=== PATIENT | female | born 1965 | race Caucasian/White ===

== ENCOUNTER → 2017-11-28 09:43 | Outpatient (CLI) | payer BC, SELFPAY ==
--- NOTE | 2017-11-28 09:55 | RAD_ITS ---
STUDY: X-RAY - PELVIS REASON FOR EXAM: Female, 51 years old. Inflammatory polyarthropathy. TECHNIQUE: One view of the pelvis was obtained. COMPARISON: None. FINDINGS: There is a non-specific bowel gas pattern. Normal visualized soft tissue structures. Normal bilateral iliac wings, sacroiliac joints and visualized sacrum. Normal visualized bilateral superior and inferior pubic rami. Normal pubic symphysis. Normal ischial tuberosities. Normal visualized right femoral head. Normal right acetabulum. Normal right hip joint. Normal visualized left femoral head. Normal left acetabulum. Normal left hip joint. RAD/Pelvis 1 or 2 Views IMPRESSION: Normal x-ray examination of the pelvis. Electronically Signed: Mendez Hays MD at 17:00 EDT , Service support ,
[2017-11-28 11:55] LABS: Color, Urine Yellow (Yellow); Glucose, Dipstick Normal (Normal); Ketone-Dipstick Negative (Negative); Leukocyte Esterase-Dipstick 25 /ul (Negative); Nitrite-Dipstick Negative (Negative); Occult Blood-Urine Negative /ul (Negative); Protein-Dipstick Negative (Negative); Urine Bilirubin Dipstick Negative (Negative); Urine Clarity Clear (Clear); Urine Urobilinogen 4 mg/dl (Normal); Urine pH 6.5 (5.0 - 8.0)
[2017-11-28 12:06] LABS: Protein, Urine (Random) 11.2 mg/dL (<11.9); Protein:Creat Ratio 116 mg/g CRE (0-200)
[2017-11-28 12:09] LABS: Absolute Lymphocyte Count 1.97 X10^3/ul (0.83-4.51); Basophil# 0.01 X10^3/uL; Basophil% 0.2 % (0-1); Eosinophil# 0.04 X10^3/uL; Eosinophils% 0.9 % (0-5); Hematocrit 45.2 % (37-47); Lymphocyte # 1.97 X10^3/ul (4.0); Lymphocyte % 45.1 % (19-41); Mean Corp Hgb Conc 33.2 g/gl (32-36); Mean Corpuscular Hgb 28.2 pg (27.0-32.0); Mean Corpuscular Volume 85.1 fL (81-99); Mean Platelet Vol. 11.1 fl (6.2-12.0); Monocyte# 0.31 X10^3/uL; Monocyte% 7.1 % (0-10); Neutrophil # 2.03 X10^3/uL (2.7-7.7); Neutrophil % 46.5 % (47-70); Platelet Count 249 K/mm3 (150-450); RBC Distribution Width CV 14.5 % (11.6-14.6); RBC Distribution Width SD 45.2 fl (35.1-43.9); Red Blood Count 5.31 M/mm3 (4.2-5.4); White Blood Count 4.4 K/mm3 (4.4-11.0)
[2017-11-28 12:16] LABS: ALB/GLOB Ratio 1.1 RATIO (0.9-2.4); AST(SGOT) 19 U/L (15-37); Alanine Aminotransfer ALT/SGPT 33 U/L (13-56); Albumin, Serum 3.7 g/dL (3.2-5.0); Alkaline Phosphatase 105 U/L (45-117); Anion Gap 6 (5-15); BUN 14 mg/dL (7-18); BUN/Creat Ratio 17.7 RATIO (10-20); Calcium,Total 10.7 mg/dL (8.5-10.1); Chloride 110 mmol/L (98-107); Creatinine, Serum 0.79 mg/dL (0.55-1.02); EST Glomerular Filtration Rate 80 mL/min (>60); Est Glom Filt Rate - Afr Amer 97 mL/min (>60); Globulin 3.4 g/dL (2.2-4.2); Glucose 91 mg/dL (74-106); Potassium 4.4 mmol/L (3.5-5.1); Protein, Total 7.1 g/dL (6.4-8.2); Rheumatoid Factor < 10.0 IU/mL (<15); Sodium Level 142 mmol/L (136-145)
[2017-11-28 12:17] LABS: POSITIVE COUNT NO; POSITIVE DIFFERENTIAL NO; POSITIVE MORPHOLOGY NO
[2017-11-29 14:08] LABS: Anti-Centromere B Ab <0.2 AI (0.0-0.9); Anti-Jo <0.2 AI (0.0-0.9); Anti-Scleroderma-70 AB <0.2 AI (0.0-0.9); RNP Ab <0.2 AI (0.0-0.9); SJOGREN'S Anti-SS-A test < 0.2 AI (0.0-0.9); SJOGREN'S Anti-SS-B test < 0.2 AI (0.0-0.9); Smith Ab <0.2 AI (0.0-0.9)
[2017-11-29 14:34] LABS: ANTINUCLEAR ANTIBODIES DIRECT Negative (Negative); Anti-dsDNA Ab 1 IU/mL (0-9)
[2017-12-05 16:07] LABS: Complement C3 141 mg/dL (82-167)
[2017-12-07 10:41] LABS: CCP IgG Antibodies < 1 units (0-19); HEPATITIS B SURFACE AG Negative (Negative); HLA B27 Negative (.); Hep B Surface Antibodies Non Reactive (.); Hep C Antibodies <0.1 s/co ratio (0.0-0.9)
== END ==
PROVIDERS: Family Provider Family Medicine; PCP Family Medicine; Visit Provider Internal Medicine Rheumatology
DX: M06.4 Inflammatory polyarthropathy (principal); M79.7 Fibromyalgia; R76.8 Other specified abnormal immunological findings in serum; F41.9 Anxiety disorder, unspecified; F32.89 Other specified depressive episodes; G47.33 Obstructive sleep apnea (adult) (pediatric)
CPT/HCPCS: 36415; 72170; 80053; 81002; 81374; 82570; 84156; 85025; 86038; 86160; 86200; 86225; 86235; 86431; 86706; 86803; 87340

== ENCOUNTER → 2018-02-02 16:01 | Outpatient (CLI) | payer BC, SELFPAY ==
[2018-02-02 17:47] LABS: Absolute Lymphocyte Count 2.02 X10^3/ul (0.83-4.51); Absolute Neutrophil Count 2.6 X10^3/uL (2.0-7.7); Eosinophil# 0.05 X10^3/uL; Hematocrit 44.1 % (37-47); Lymphocyte # 2.02 X10^3/ul (4.0); Lymphocyte % 39.7 % (19-41); Mean Corpuscular Hgb 29.3 pg (27.0-32.0); Mean Corpuscular Volume 86.1 fL (81-99); Mean Platelet Vol. 10.8 fl (6.2-12.0); Monocyte# 0.45 X10^3/uL; Monocyte% 8.8 % (0-10); Neutrophil # 2.55 X10^3/uL (2.7-7.7); Neutrophil % 50.1 % (47-70); Platelet Count 308 K/mm3 (150-450); RBC Distribution Width CV 16.3 % (11.6-14.6); RBC Distribution Width SD 49.3 fl (35.1-43.9); Red Blood Count 5.12 M/mm3 (4.2-5.4); White Blood Count 5.1 K/mm3 (4.4-11.0)
[2018-02-02 18:02] LABS: ALB/GLOB Ratio 1.4 RATIO (0.9-2.4); AST(SGOT) 22 U/L (15-37); Alanine Aminotransfer ALT/SGPT 61 U/L (13-56); Alkaline Phosphatase 140 U/L (45-117); Anion Gap 8 (5-15); BUN 13 mg/dL (7-18); BUN/Creat Ratio 14.1 RATIO (10-20); Calcium,Total 12.1 mg/dL (8.5-10.1); Chloride 106 mmol/L (98-107); Creatinine, Serum 0.92 mg/dL (0.55-1.02); EST Glomerular Filtration Rate 67 mL/min (>60); Est Glom Filt Rate - Afr Amer 82 mL/min (>60); Globulin 2.9 g/dL (2.2-4.2); Glucose 90 mg/dL (74-106); Protein, Total 6.9 g/dL (6.4-8.2); Sodium Level 142 mmol/L (136-145)
[2018-02-02 18:05] LABS: POSITIVE COUNT NO; POSITIVE DIFFERENTIAL NO; POSITIVE MORPHOLOGY NO
== END ==
PROVIDERS: Family Provider Family Medicine; PCP Family Medicine; Visit Provider Internal Medicine Rheumatology
DX: M06.4 Inflammatory polyarthropathy (principal); M79.7 Fibromyalgia; F41.9 Anxiety disorder, unspecified; F32.89 Other specified depressive episodes; G47.33 Obstructive sleep apnea (adult) (pediatric); R76.8 Other specified abnormal immunological findings in serum
CPT/HCPCS: 36415; 80053; 85025

== ENCOUNTER 2019-02-25 05:14 | Inpatient (IN) | payer OTHER, SELFPAY ==
--- NOTE | 2019-01-24 06:22 | HP_ITS ---
ADDENDUM by Michael Reich MD on 01/28/19 at 1201 Addendum entered and electronically signed by Michael Reich MD 01/28/19 12:01: I have personally reviewed her CT imaging from [facility]. She had imaging performed October 01, 2018 and repeat imaging December 19, 2018. There is certainly diverticulitis identified however it appears to be in approximately the mid descending colon. There is extensive diverticular disease of the sigmoid colon but this does not appear to be the focal area of inflammation. There is evidence of focal perforation in the descending colon. This certainly will require mobilization of the splenic flexure. Certainly increases the technical difficulty and risk of the operation. The patient has been instructed that this may require hand assist or even conversion to an open technique. I am anticipating a tap block. I am anticipating a midline incision. She has had the opportunity to ask and have questions answered she would like to proceed as noted. Michael Reich M.D., F.A.C.S. Intake Allergies No Known Allergies Allergy (Unverified 01/24/19 08:51) Medications ciprofloxacin 500 mg tablet 500 mg PO BID 7 Days #14 tab 01/24/19 [Rx Confirmed 01/24/19] fluoxetine 40 mg capsule 40 mg PO DAILY 01/24/19 [History Confirmed 01/24/19] losartan 25 mg tablet 25 mg PO DAILY 01/24/19 [History Confirmed 01/24/19] metoprolol succinate ER 25 mg tablet,extended release 24 hr 25 mg PO DAILY 01/24/19 [History Confirmed 01/24/19] metronidazole 500 mg tablet 500 mg PO TID 7 Days #21 tab 01/24/19 [Rx Confirmed 01/24/19] Assessment & Plan Problems 1. Sigmoid diverticulitis K57.32 Plan - Michael Reich MD Clinically is very suspicious that the patient has had another bout of recurrent sigmoid diverticulitis. Possibly she is non-resolving. In great detail I have discussed surgical treatment options. We have discussed potential for a lap scopic sigmoid colectomy possible hand-assisted possible open approach possible diverting colostomy or ileostomy. I went into great detail regarding technique, benefit, risks, alternatives. Absolutely no guarantees of success were offered. The patient is also aware that her body habitus clearly plates are at increased operative challenge and operative risk. This made her very tearful. I offered her consideration for tertiary referral. I offered her consideration for an attempt at a sigmoid colectomy locally here at [place]. Prior to proceeding with that offer I would want to personally review her CT scans. The patient also of course has the opportunity not to proceed surgical intervention at all. She has had an opportunity to ask and have questions answered. She will help provide me with the CT disc and then we will recontact the patient with further more definitive recommendations. I appreciate the opportunity of assisting with her surgical care CC: KELLY Mart MD, FACS Medications New: metronidazole 500 mg PO TID 7 days 21 tabs 0RF ciprofloxacin 500 mg PO BID 7 days 14 tabs 0RF 01/28/19 1201 <Electronically signed by Michael todd MD> Date _ Michael Reich MD cc: KELLY Singh ~* Signed Intake Vital Signs 01/24/19 Height 4 ft 10 in 01/24/19 Weight: 210 lb 01/24/19 Body Mass Index (BMI) 43.9 01/24/19 Blood Pressure 180/103 H 01/24/19 Blood Pressure Location Rt brachial 01/24/19 Respiratory Rate 18 Intake Visit Reasons: Diverticulitis Customer Acquisition Manager Required: No Is patient in pain?: No Allergies No Known Allergies Allergy (Unverified 01/24/19 08:51) Medications ciprofloxacin 500 mg tablet 500 mg PO BID 7 Days #14 tab 01/24/19 [Rx Confirmed 01/24/19] fluoxetine 40 mg capsule 40 mg PO DAILY 01/24/19 [History Confirmed 01/24/19] losartan 25 mg tablet 25 mg PO DAILY 01/24/19 [History Confirmed 01/24/19] metoprolol succinate ER 25 mg tablet,extended release 24 hr 25 mg PO DAILY 01/24/19 [History Confirmed 01/24/19] metronidazole 500 mg tablet 500 mg PO TID 7 Days #21 tab 01/24/19 [Rx Confirmed 01/24/19] PFSH Medical History Depression (Acute) Diverticulitis (Acute) HTN (hypertension) (Chronic) Surgical History (Updated 01/24/19 @ 08:50 by Julee Mehta) S/P section (Acute) S/P hysterectomy (Acute) S/P laparoscopic cholecystectomy (Acute) Social History (Updated 01/24/19 @ 18:22 by Michael Reich MD) Smoking Status: Never smoker alcohol intake: never HPI HPI HPI: NELSON WILDER, is a 53 F who presents to the office today for HPI HPI Surgical H&P: Yes HPI: NELSON WILDER, is a 53 F who presents to the office today for general surgical consultation regarding chronic recurrent diverticulitis non-resolving. The patient's referring provider is Michelle Singh PA-C. A written copy of my surgical consult will be returned to her. The patient states that within the past 3 months she has been hospitalized at [facility] twice. She was on IV antibiotics for 3 days and discharged on Augmentin therapy. Yesterday she developed some pain and fever. She has had [address] scans post showing sigmoid diverticulitis. I do not have access to these films right at this moment. The patient has had a colonoscopy with biopsy performed by Dr. Anthony De Santiago. This demonstrated a very focal area of colitis of the sigmoid. October 01, 2018 CT scan performed at [facility] suggested sigmoid colon mucosal thickening pericolonic fat stranding consistent with diverticulitis. Small umbilical hernia. On December 19, 2018 very similar findings are identified. The patient states that she has not been getting any definitive assistance with resolution. She is very frustrated by this. She feels that her obesity is stopping her from getting appropriate treatment. The patient is 4 feet 10 inches. Weighs 210 pounds. BMI is 43.9. She carries all of her weight in her abdomen Exam Const General: cooperative, comfortable, no acute distress, anxious Nutritional Appearance: obese centrally obese Orientation: alert, awake, oriented x3 HENMT Head: normal to inspection Chest Chest palpation & inspection: normal inspection of the chest Resp Effort & Inspection: normal respiratory effort Auscultation: clear to auscultation bilaterally Cardio Rate: regular rate Rhythm: regular rhythm GI Other: Markedly overweight with large abdomen and overhanging pannus, tender to palpation left mid abdomen and left lower quadrant without mass. Bowel sounds are present and nondescript Skin General: no rashes or lesions noted Neuro General: alert Extrem General: no calf tenderness bilaterally Psych Affect: labile affect Assessment & Plan Problems 1. Sigmoid diverticulitis K57.32 Plan Clinically is very suspicious that the patient has had another bout of recurrent sigmoid diverticulitis. Possibly she is non-resolving. In great detail I have discussed surgical treatment options. We have discussed potential for a lap scopic sigmoid colectomy possible hand-assisted possible open approach possible diverting colostomy or ileostomy. I went into great detail regarding technique, benefit, risks, alternatives. Absolutely no guarantees of success were offered. The patient is also aware that her body habitus clearly plates are at increased operative challenge and operative risk. This made her very tearful. I offered her consideration for tertiary referral. I offered her consideration for an attempt at a sigmoid colectomy locally here at [place]. Prior to proceeding with that offer I would want to personally review her CT scans. The patient also of course has the opportunity not to proceed surgical intervention at all. She has had an opportunity to ask and have questions answered. She will help provide me with the CT disc and then we will recontact the patient with further more definitive recommendations. I appreciate the opportunity of assisting with her surgical care CC: KELLY Mart MD, FACS Medications New: metronidazole 500 mg PO TID 7 days 21 tabs 0RF ciprofloxacin 500 mg PO BID 7 days 14 tabs 0RF Coding Level of Care Code 77373 Diagnoses Sigmoid diverticulitis K57.32 Time Spent (min) 60 01/24/19 3982 <Electronically signed by Michael todd MD> Date _ Michael Reich MD I have re-examined the patient. There are no clinical changes since date of exam.
[2019-01-24 08:51] VITALS: BMI 43.9
[2019-02-18 09:20] VITALS: BMI 43.9
[2019-02-18 10:10] VITALS: PULSE 73; RESP 16; TEMP 36.9; O2SAT 98; BMI 42.8
--- NOTE | 2019-02-18 10:37 | SDCEKG_ITS ---
Test Reason : Blood Pressure : / mmHG Vent. Rate : 070 BPM Atrial Rate : 070 BPM P-R Int : 160 ms QRS Dur : 074 ms QT Int : 384 ms P-R-T Axes : 017 -14 017 degrees QTc Int : 414 ms Normal sinus rhythm Normal ECG Confirmed by CELSO KNIGHT ([id number]), newspaper editor managing WILLIAM DELUNA ([id number]) on 02/21/2019 2:14:07 PM Referred By: Michael Reich Confirmed By:CELSO KNIGHT
[2019-02-18 12:27] LABS: Absolute Lymphocyte Count 2.11 X10^3/uL (0.83-4.51); Basophil# 0.01 X10^3/uL; Basophil% 0.2 % (0-1); Hematocrit 48.5 % (37-47); Hemoglobin 15.6 g/dL (12.0-15.0); Lymphocyte # 2.11 X10^3/ul (4.0); Lymphocyte % 39.1 % (19-41); Mean Corp Hgb Conc 32.2 g/dL (32-36); Mean Corpuscular Volume 90.1 fL (81-99); Mean Platelet Vol. 10.9 fl (6.2-12.0); Monocyte% 5.6 % (0-10); NRBC Flagged by Analyzer 0 % (0-5); Neutrophil # 2.96 X10^3/uL (2.7-7.7); Neutrophil % 54.7 % (47-70); Platelet Count 308 K/mm3 (150-450); RBC Distribution Width CV 15.4 % (11.6-14.6); RBC Distribution Width SD 50.4 fl (35.1-43.9); Red Blood Count 5.38 M/mm3 (4.2-5.4); White Blood Count 5.4 K/mm3 (4.4-11.0)
[2019-02-18 12:51] LABS: Anion Gap 6 (5-15); BUN 15 mg/dL (7-18); BUN/Creat Ratio 19.4 RATIO (10-20); Calcium,Total 10.5 mg/dL (8.5-10.1); Chloride 109 mmol/L (98-107); Creatinine, Serum 0.78 mg/dL (0.55-1.02); EST Glomerular Filtration Rate 82 mL/min (>60); Est Glom Filt Rate - Afr Amer 99 mL/min (>60); Estimated Creatinine Clearance 123.89 ml/min; Glucose 90 mg/dL (74-106); Potassium 4.4 mmol/L (3.5-5.1); Sodium Level 140 mmol/L (136-145)
[2019-02-25] VITALS (15 sets, daily range): BP systolic 95–155; BP diastolic 48–101; PULSE 53–86; RESP 16–18; TEMP 36.3–36.8; O2SAT 94–100; BMI 42.8
[2019-02-25 06:31] LABS: Bedside Glucose 93 mg/dL (70-110)
[2019-02-25] MEDS: Lactated Ringers 1,000 ML 40 ML IV ×2 (06:40→22:47)
[2019-02-25] MEDS: Acetaminophen 500 MG Tablet 1000 MG PO ×4 (06:41→23:58)
[2019-02-25] MEDS: Gabapentin 600 MG Tablet PO (06:41)
[2019-02-25] MEDS: Magnesium Sulfate 4gm/100mL 4 GM/100 ML IV.SOLN. IV (06:42)
--- NOTE | 2019-02-25 07:01 | DCINST_ITS ---
<Michael Reich - Last Filed: 02/25/19 07:01> Discharge Diet: Light diet - advance as tolerated - if you have questions about your diet instructions, please talk to you doctor. Discharge Activity: May Not Drive - for 1 week or while taking narcotic pain medicine. May shower in (days): 1 Lifting Restrictions: 10 pounds Call your doctor if your incision/area has: Continuous Slow Oozing, Sudden Increased Bleeding, Increased Pain/ Swelling, Increased Redness, Foul Smelling Discharge Call your doctor if you observe: Fever of 101 or Higher Suture Line Care: Avoid Pulling/Pushing, Avoid Pinching/Bending Additional Dressing/Incision Instructions:: Change or remove dressing in 2 days. Leave steri-strips in place for 1 week. Allergies/Adverse Reactions: Allergies No Known Allergies Allergy (Unverified 02/18/19 10:08) Medications to take at Discharge fluoxetine 40 mg capsule 40 mg PO DAILY 01/24/19 losartan 25 mg tablet 25 mg PO DAILY 01/24/19 metoprolol succinate ER 25 mg tablet,extended release 24 hr 25 mg PO DAILY 01/24/19 metronidazole 500 mg tablet 500 mg PO .COMPLEX #6 tab 02/18/19 neomycin 500 mg tablet 500 mg PO .COMPLEX #6 tab 02/18/19 Primary Care Physician: Michelle Singh PA-C [Primary Care Provider] - Test Results: Test results from this visit will be discussed in further detail at your follow- up appointment, if applicable. Please Follow Up With: Michael Reich MD - [phone] When: Call to make an appointment to be seen in about 10 days. <Yamila Landaverde - Last Filed: 02/27/19 10:12> Test Results: Test results from this visit will be discussed in further detail at your follow- up appointment, if applicable.
--- NOTE | 2019-02-25 07:15 | COL_PTH ---
PATIENT: NELSON WILDER LOC: MS3 U#:[id number] AGE/SX: 53/F ROOM: GA317 RE02/25/[address]: Dr. Michael Reich MD : 1965 BED: 1 DIS: 02/27/2019 SPEC #: [id number] RECD: 02/25/19 12:24 STATUS: GISSELL REGabriella #: [id number] SENTHIL: 02/25/19 07:[address]: Michael Reich DEPT: SURGICAL PATHOLOGY RECD BY: America Ortiz ENTERED: 02/25/19 13:41 SP TYPE: COLON OTHR DR: Michelle Singh PA-C Tissues: A - Colon Donuts B - Colon Donuts C - Colon, NOS Procedures: Surgery Specimen Level III Surgery Specimen Level V HEADER OPERATION: Laparoscopic hand assisted left colectomy, ERAS PRE-OP DIAGNOSIS: Sigmoid diverticulitis K57.32 TISSUE SUBMITTED: A. Distal (rectal) bowen BJalil Proximal (sigmoid) Héctor wiseman Entire left colon MICROSCOPIC DIAGNOSIS A. Distal (rectal) donut: Colonic donut, no pathologic diagnosis. B. Proximal (sigmoid) donut: Colonic donut, no pathologic diagnosis. C. Entire left colon, colectomy: Diverticulosis and diverticulitis. SJ:elena 02/27/19 MICROSCOPIC DESCRIPTION Slides are reviewed. GROSS DESCRIPTION A - Received in fixative is one container labeled with the patient's name and designated distal (rectal) donut. The specimen consists of a donut-shaped piece of colonic tissue measuring 2.5 x 2.5 x 1.5 cm. Multiple rebecca are noted. Process Steward sections are submitted in one cassette. / MOMO:elena 02/25/19 B - Received in fixative is one container labeled with the patient's name and designated proximal (sigmoid) donut. The specimen consists of a donut-shaped piece of colonic tissue measuring 2 x 2 x 1.5 cm. Multiple sutures are noted. Process Steward sections are submitted in one cassette. / MOMO:elena 02/25/19 C - Received in fixative is one container labeled with the patient's name and designated entire left colon. The specimen consists of a segment of colon with attached pericolonic adipose tissue measuring 35 cm in length. One resection margin is opened and other resection margin is stapled. The lumen contains a small amount of fecal material. No mucosal lesion is identified. More dictation will follow after overnight fixation. / SJ:elena 02/25/19 Sections reveal multiple diverticula. No obviously ruptured diverticula are noted. Sections of pericolonic adipose tissue do not reveal any obviously enlarged lymph node. Process Steward sections are submitted in six cassettes as follows: 1 - resection margin, one resection margin is inked black, 2-4 - diverticula, 5?& 6 - pericolonic adipose tissue. / :elena 02/26/19 TC:5 CPT: 19595, 05965 x2
[2019-02-25] MEDS: Lidocaine/D5W 2,000 MG/250 ML IV.SOLN 2000 MG (07:30)
[2019-02-25] MEDS: Lidocaine/D5W 2,000 MG/250 ML IV.SOLN 28.9 MG IV (07:45)
[2019-02-25] MEDS: Lubricating Jelly 60 GM Tube 30 GM TOPICAL (09:05)
[2019-02-25] MEDS: Bupivacaine 0.25% 30 ML Vial (11:04)
--- NOTE | 2019-02-25 11:07 | OP.PCM_ITS ---
Problem List (1) Sigmoid diverticulitis Status: Acute (2) Diverticulitis large intestine Status: Acute Qualifiers: Diverticulitis complication: with perforation Report of Operation Date of Procedure: 02/25/19 Pre-Operative Diagnosis: Chronic perforated diverticulitis of the descending colon Post-Operative Diagnosis: Chronic perforated diverticulitis of the descending colon and chronic diverticulitis of the distal sigmoid colon Surgery/Procedure Performed:: Hand-assisted laparoscopic left colectomy with mobilization of the splenic flexure. Bilateral subcostal LEIDY block Description of Surgical Findings:: Timeout and informed consent was obtained. 53-year-old female was taken out from placement table underwent general endotracheal intubation anesthesia. Cefotetan 2 g were given intravenously preoperatively. She was placed in low lithotomy position. She was placed on a beanbag. She is essentially very morbidly obese. The abdomen and perineum were sterilely prepped and draped. A Edmond catheter was inserted. Inspecting her abdomen felt that I could not achieve this completely laparoscopically so I immediately did a sterile prepping draping but Sulema then made a 7 similar supra umbilical vertical incision. Placed a hand assist port. There were adhesions of omentum to the anterior abdominal wall in the infraumbilical position. I placed a 5 De Santiago port in the right lower quadrant additional 5 De Santiago port in the right lower quadrant and additional 5 De Santiago port in the epigastric area and an additional 5 De Santiago port in the left lower quadrant. These were used to help mobilize and free up the adhesions of omentum to the infraumbilical midline. This was done with the Enseal device. There were multiple adhesions of the sigmoid colon to the left pelvic sidewall and I carefully transected those with the Enseal and I was able to mobilize the rectosigmoid from the pelvis. I then incised the white line of Toldt and carried at all the way up to the splenic flexure I was then able to mobilize the splenic flexure carefully taking great care not to injure the spleen. I then transected the gastrocolic omentum all the way over to the level of the gallbladder. This allowed for mobilization of the transverse colon. There was an area of perforation induration in the proximal descending colon. This was the area of concern on CAT scan and correlate with the patient's symptoms. There was another dense area of indurated bowel however at the pelvic brim in the distal sigmoid colon. So I then having mobilize: [place] I could get the transverse colon back down to the rectosigmoid clearly I brought the bowel out transected portion of it with the Enseal device felt that I was able to ac hieve the length required and so I then returned the bowel to the abdomen transected the rectosigmoid with 2 firings of the 60 mm Hendron device. I then transected the mesentery absolutely flush with the bowel and took out the entire left colon. The bowel was eviscerated through the supraumbilical incision and I have obtained additional hemostasis were needed with hemo-lock clips and 4-0 silk sutures. I then transected the bowel proximally with a Cody clamp. I placed a whip suture of 2-0 Prolene. I put a 33 circular anastomotic stapler anvil and secured that with the pursestring. I dabbed the ends with the Betadine. I drop that back within the abdomen. The rectosigmoid was irrigated with dilute Betadine solution. Sizers were placed. In the circular anastomotic stapler was inserted up to the staple line. The trocar was exited I was then able to made it to the antral and watches the 2 were approximated. The device was fired. The device was then removed the donuts were inspected. Sigmoid donut quite nice and intact with the rectal tone and also intact. Rigid sigmoidoscope was then inserted past the anus air was insufflated with water in the pelvis and there was absolutely no air leak. The bowel appeared to be nicely intact there was absolutely no tension. Because I had a long mesentery I was unable to approximate that back to the transverse colon using extra-large Hem-o-tiffanie clips in the means of closing the mesenteric trap. Small bowel was made sure to be out from underneath the transverse colon which now made up the descending portion of the bowel. The bowel was inspected all noted to be quite viable. It is of note that 1 of the right lower quadrant flowmeter trochars had to be upsized to a telemeter to allow for the Hendron to be used. Inspected the pelvis all free fluid was aspirated free. At telemeter trocar site was closed with a grainy needle in [id number] suture of 0 Vicryl. The remaining trochars removed under visualization and the abdomen was allowed to deflate the CO2. Prior to this a bilateral tap block was performed under laparoscopic visualization. 20 cc of Exparel was mixed with 30 cc of 0.5% Marcaine and diluted 200 cc with saline. Under lap scopic visualization bilateral tap block in the transabdominal was pre-peritoneal level. This was performed with a 25- gauge needle injecting at 2 cm intervals bilaterally. At then achieved the abdomen was allowed to deflate the CO2. The fascia at the supraumbilical midline was closed with a running #1 PDS. That fascia was also treated with a local anesthetic. Several interrupted 3-0 Vicryl was used to close the subtenons fat as the patient is significantly overweight in this area. Skin edges approximated with interrupted or running septic or 4-0 Monocryl. Steri-Strips Telfa and OpSite dressings applied. Sponge and instrument and needle counts were reported to surgically correct. Blood loss was 150 cc. She tolerated procedure well no apparent complication s he was taken to the recovery area in satisfactory condition. Specimen left colon. Drains none. Blood loss 150 cc. Michael Reich M.D., F.A.C.S. Type of Anesthesia:: General Anesthesiologist: Cheo Lau
[2019-02-25] MEDS: BUPIVACAINE LIPOSOME/PF 20 ML VIAL OPERA.SITE (11:08)
[2019-02-25] MEDS: Ketorolac 15 MG/ML Vial IV ×3 (14:00→23:58)
--- NOTE | 2019-02-25 18:02 | PCM.PN.BLA ---
Progress Note Pt comfortable and making good progress VS stable Encouraged pt to mobilize R.Cebul
[2019-02-25] MEDS: Docusate Sodium 100 MG Capsule PO (22:09)
[2019-02-26 03:03] VITALS: BP 103/61; PULSE 71; RESP 16; TEMP 36.6; O2SAT 99
[2019-02-26] MEDS: Ketorolac 15 MG/ML Vial IV ×3 (05:21→23:01)
[2019-02-26 05:42] LABS: Hematocrit 36.8 % (37-47); Mean Corp Hgb Conc 32.6 g/dL (32-36); Mean Corpuscular Hgb 29.2 pg (27.0-32.0); Mean Corpuscular Volume 89.5 fL (81-99); Mean Platelet Vol. 10.1 fl (6.2-12.0); Platelet Count 254 K/mm3 (150-450); RBC Distribution Width CV 15.6 % (11.6-14.6); RBC Distribution Width SD 50.7 fl (35.1-43.9); Red Blood Count 4.11 M/mm3 (4.2-5.4); White Blood Count 7.2 K/mm3 (4.4-11.0)
--- NOTE | 2019-02-26 05:47 | PCM.PN.SRG ---
Patient Problems: Active and Suspected Problems (Last Reviewed 02/18/19 @ 09:10 by Chely Harrison) Diverticulitis large intestine (Acute) Subjective: No complaints, not much pain - Physical Exam General: Alert, Oriented x3 Lungs: Clear to auscultation Abdomen: Soft, Non Tender, Hypoactive Bowel Sounds, Distended Vital Signs Temp Pulse Resp BP Pulse Ox 97.9 F 71 16 103/61 99 02/26/19 03:03 02/26/19 03:03 02/26/19 03:03 02/26/19 03:03 02/26/19 03:03 Oxygen Flow Rate (L/min) 1 Oxygen Delivery Method Nasal Cannula Weight: 212 lb 4.882 oz Body Mass Index (BMI) 42.8 Intake and Output for Last 24 Hours 02/24/19 02/25/19 02/26/19 23:59 23:59 23:59 Intake Total 2708 / 3510 802 / 802 Output Total 450 / 525 75 / 75 Balance 2258 / 2985 727 / 727 Laboratory Tests Past 24 Hrs 02/26/19 02/26/19 05:30 05:30 WBC 7.2 RBC 4.11 L Hgb 12.0 Hct 36.8 L MCV 89.5 MCH 29.2 MCHC 32.6 RDW Std Deviation 50.7 H RDW Coeff of Shellie 15.6 H Plt Count 254 MPV 10.1 Sodium Pending Potassium Pending Chloride Pending Carbon Dioxide Pending Anion Gap Pending BUN Pending Creatinine Pending Est GFR (MDRD) Af Amer Pending Est GFR (MDRD) Non-Af Pending BUN/Creatinine Ratio Pending Glucose Pending Calcium Pending POC Glucose 02/25/19 06:01 POC Glucose 93 Medical Necessity - Tobacco Use Smoking Status: Never smoker Tobacco Use: Non-smoker Assessment/Plan All Active Problems (Last Reviewed 02/18/19 @ 09:10 by Chely Harrison) Diverticulitis large intestine (Acute) Sigmoid diverticulitis (Acute) Excellent progress Will ivette mcdowell and pt encouraged to mobilize
[2019-02-26 06:08] LABS: Anion Gap 6 (5-15); BUN 13 mg/dL (7-18); BUN/Creat Ratio 10.2 RATIO (10-20); Calcium,Total 8.9 mg/dL (8.5-10.1); Chloride 108 mmol/L (98-107); Creatinine, Serum 1.28 mg/dL (0.55-1.02); EST Glomerular Filtration Rate 46 mL/min (>60); Est Glom Filt Rate - Afr Amer 56 mL/min (>60); Glucose 109 mg/dL (74-106); Potassium 4.1 mmol/L (3.5-5.1); Sodium Level 137 mmol/L (136-145)
[2019-02-26] MEDS: Lactated Ringers 1,000 ML 40 ML IV ×2 (06:19→23:02)
[2019-02-26] MEDS: HYDROcodone Bitartrate/Apap 5/325 Tablet PO (06:56)
[2019-02-26 07:30] VITALS: O2SAT 95
[2019-02-26 09:00] VITALS: BP 95/56; PULSE 62; RESP 16; TEMP 36.7; O2SAT 95
[2019-02-26] MEDS: Docusate Sodium 100 MG Capsule PO (09:53)
[2019-02-26] MEDS: FLUoxetine 20 MG Capsule 40 MG PO (09:53)
[2019-02-26 09:54] VITALS: PULSE 65
[2019-02-26] MEDS: Metoprolol(XL)Succ 25 MG Tablet PO (09:54)
[2019-02-26] MEDS: Enoxaparin 40 MG/0.4 ML Syringe SC (09:54)
[2019-02-26] MEDS: Losartan Potassium 25 MG Tablet PO (09:54)
--- NOTE | 2019-02-26 12:59 | CASEMGMT ---
RN CM Assessment Presentation: Diverticulitis, Colectomy Intro role of CM and purpose of RN CM assessment to patient in room. Demographics, PCP and Pharmacy verified. Pt states she lives independently, works and does not anticipate any care needs. PCP: Michelle Singh PA-C Specialists: Dr. Michael Reich Preferred Pharmacy: [facility] Insurance: [facility] Prescription Benefit: yes LNOK: Mother, Samara Hinson Living Arrangements: Lives independently, no use of DME. Pt independent in ADL's. Transportation: drives, but mother can assist if needed. DME: none HHC: none Patient DC goals: Home DC PLAN: Home on dc. Astrid MOLINA RN ACM
[2019-02-26 15:00] VITALS: BP 131/63; PULSE 66; RESP 18; TEMP 36.5; O2SAT 96
--- NOTE | 2019-02-26 17:35 | PCM.PN.BLA ---
Progress Note Full easily with transitional Voiding but lessor amounts than normal Will hold pt overnight and check a.m. labs Good progress. Comfortable
[2019-02-26 20:32] VITALS: BP 127/75; PULSE 66; RESP 18; TEMP 36.6; O2SAT 95
--- NOTE | 2019-02-26 22:00 | NURSING ---
pt ambulating in halls
[2019-02-26] MEDS: 0.9% NaCl Peripheral Flush Adult/Peds IV (23:01)
[2019-02-27 02:15] VITALS: BP 147/78; PULSE 66; RESP 16; TEMP 36.6; O2SAT 96
--- NOTE | 2019-02-27 02:15 | NURSING ---
pt had been up ambulating in room. sitting up in chair at this time
[2019-02-27 05:39] LABS: Absolute Lymphocyte Count 1.04 X10^3/uL (0.83-4.51); Absolute Neutrophil Count 7.3 X10^3/uL (2.0-7.7); Basophil# 0.01 X10^3/uL; Basophil% 0.1 % (0-1); Eosinophil# 0.12 X10^3/uL; Eosinophils% 1.3 % (0-5); Hematocrit 36.2 % (37-47); Hemoglobin 12.1 g/dL (12.0-15.0); Lymphocyte # 1.04 X10^3/ul (4.0); Lymphocyte % 11.4 % (19-41); Mean Corp Hgb Conc 33.4 g/dL (32-36); Mean Corpuscular Hgb 29.4 pg (27.0-32.0); Mean Corpuscular Volume 88.1 fL (81-99); Mean Platelet Vol. 10.5 fl (6.2-12.0); Monocyte# 0.54 X10^3/uL; Monocyte% 5.9 % (0-10); NRBC Flagged by Analyzer 0 % (0-5); Neutrophil # 7.34 X10^3/uL (2.7-7.7); Neutrophil % 80.9 % (47-70); POSITIVE MORPHOLOGY YES; Platelet Count 237 K/mm3 (150-450); RBC Distribution Width CV 15.1 % (11.6-14.6); Red Blood Count 4.11 M/mm3 (4.2-5.4); White Blood Count 9.1 K/mm3 (4.4-11.0)
[2019-02-27 05:46] LABS: Differential Indicated SCAN CRITERIA MET
[2019-02-27 05:48] LABS: Anion Gap 10 (5-15); BUN 16 mg/dL (7-18); BUN/Creat Ratio 17.9 RATIO (10-20); Chloride 102 mmol/L (98-107); Creatinine, Serum 0.89 mg/dL (0.55-1.02); EST Glomerular Filtration Rate 70 mL/min (>60); Est Glom Filt Rate - Afr Amer 84 mL/min (>60); Estimated Creatinine Clearance 108.58 ml/min; Glucose 98 mg/dL (74-106); Potassium 4.3 mmol/L (3.5-5.1); Sodium Level 132 mmol/L (136-145)
--- NOTE | 2019-02-27 05:54 | PN.SURG_ITS ---
Patient Problems: Active and Suspected Problems (Last Reviewed 02/18/19 @ 09:10 by Chely Harrison) Diverticulitis large intestine (Acute) Subjective: No complaints - Physical Exam Abdomen: Bowel Sounds Present - wounds clean, Soft, Non Tender Vital Signs Temp Pulse Resp BP Pulse Ox 97.8 F 66 16 147/78 H 96 02/27/19 02:15 02/27/19 02:15 02/27/19 02:15 02/27/19 02:15 02/27/19 02:15 Oxygen Flow Rate (L/min) 1 Oxygen Delivery Method Room Air Weight: 212 lb 4.882 oz Body Mass Index (BMI) 42.8 Intake and Output for Last 24 Hours 02/25/19 02/26/19 02/27/19 23:59 23:59 23:59 Intake Total 2708 / 3510 3337.66 / 3937.66 1000 / 1000 Output Total 450 / 525 525 / 825 600 / 600 Balance 2258 / 2985 2812.66 / 3112.66 400 / 400 Laboratory Tests Past 24 Hrs 02/26/19 02/27/19 02/27/19 05:30 05:30 05:30 WBC 9.1 RBC 4.11 L Hgb 12.1 Hct 36.2 L MCV 88.1 MCH 29.4 MCHC 33.4 RDW Std Deviation 49.0 H RDW Coeff of Shellie 15.1 H Plt Count 237 MPV 10.5 Immature Gran % (Auto) 0.400 Neut % (Auto) 80.9 H Lymph % (Auto) 11.4 L [place] % (Auto) 5.9 Eos % (Auto) 1.3 Baso % (Auto) 0.1 Absolute Neuts (auto) 7.3 Absolute Lymphs (auto) 1.04 Nucleated RBC % 0 Sodium 137 132 L Potassium 4.1 4.3 Chloride 108 H 102 Carbon Dioxide 23.0 20.0 L Anion Gap 6 10 BUN 13 16 Creatinine 1.28 H 0.89 Estim Creat Clear Calc 75.50 108.58 Est GFR (MDRD) Af Amer 56 L 84 Est GFR (MDRD) Non-Af 46 L 70 BUN/Creatinine Ratio 10.2 17.9 Glucose 109 H 98 Calcium 8.9 10.0 Medical Necessity - Tobacco Use Smoking Status: Never smoker Tobacco Use: Non-smoker Assessment/Plan All Active Problems (Last Reviewed 02/18/19 @ 09:10 by Chely Harrison) Diverticulitis large intestine (Acute) Sigmoid diverticulitis (Acute) labs stable Ready for discharge
[2019-02-27 06:13] LABS: Differential Comment SCANNED
[2019-02-27 07:51] VITALS: O2SAT 95
[2019-02-27 09:20] VITALS: BP 155/84; PULSE 70; RESP 16; TEMP 37.1; O2SAT 98
== END 2019-02-27 09:55 | disposition home or self-care (01) | DRG 330 ==
LOC: ACINP 05:15 → MS3 05:32
PROVIDERS: Admitting Provider Surgery; Family Provider Family Medicine; PCP Family Medicine; Referring Provider Surgery; Visit Provider Surgery
PROC: 0DTN0ZZ Resection of Sigmoid Colon, Open Approach (ICD-10-PCS; CPT 44204; principal; 2019-02-25 06:50)
DX: K57.20 Diverticulitis of large intestine with perforation and abscess without bleeding (principal); Z68.41 Body mass index [BMI] 40.0-44.9, adult; K66.0 Peritoneal adhesions (postprocedural) (postinfection); K63.89 Other specified diseases of intestine; E66.01 Morbid (severe) obesity due to excess calories; I10 Essential (primary) hypertension; F32.9 Major depressive disorder, single episode, unspecified; Z79.899 Other long term (current) drug therapy
CPT/HCPCS: 36415; 80048; 82962; 85025; 85027; 88304; 88307; 93005; 94762; J7040; J7050; J7120; A4216; C1760; J2405; J3490

== ENCOUNTER → 2019-05-14 12:40 | Outpatient (CLI) | payer OTHER, SELFPAY ==
[2019-03-07 13:33] VITALS: BMI 42.8
--- NOTE | 2019-05-14 12:46 | BD_ITS ---
STUDY: DUAL ENERGY X-RAY ABSORPTIOMETRY / DXA REASON FOR EXAM: Female, 53 years old. Early menopause. Loss of height. TECHNIQUE: Bone Mineral Density (BMD) measurements of lumbar spine and bilateral hips were obtained. COMPARISON: None. FINDINGS: Lumbar Spine (L1-L4): g/cm2 (0.855) / T-score (-2.7) / Z-score (-1.9) Findings are suggestive of osteoporosis with a high fracture risk. Left Femur Total: g/cm2 (0.660) / T-score (-2.8) / Z-score (-2.1) Left Femoral Neck: g/cm2 (0.644) / T-score (-2.8) / Z-score (-1.8) Right Femur Total: g/cm2 (0.764) / T-score (-1.9) / Z-score (-1.3) Right Femoral Neck: g/cm2 (0.770) / T-score (-1.9) / Z-score (-0.9) BD/Dexa Bone Density Study IMPRESSION: The patient is considered osteoporotic as outlined below according to World Asim Organization (WHO) criteria with a high fracture risk. Reference Information: The T-score is the number of standard deviations above or below the standard which is normal for young adults at their peak bone mineral density. The World Health Organization (WHO) interprets the T-scores as follows: Above -1 Normal bone density Between -1 and -2.5 Osteopenia Equal to / or below -2.5 Osteoporosis As a practical clinical guideline, osteopenia may be graded as follows: Mild -1 through -1.5 Moderate -1.6 through -2.0 Severe -2.1 through -2.4 The Z-score is the number of standard deviations above or below age-matched controls. A Z-score of less than -1.5 would be considered abnormal. References: 1. NIH Osteoporosis and Related Bone Diseases http://www.osteo.org 2. International Society for Clinical Densitometry http://www.iscd.org 3. National Osteoporosis Foundation http://www.nof.org Electronically Signed: Gadiel Montanez, at 16:01 EST , Service support ,
== END ==
PROVIDERS: Family Provider Family Medicine; PCP Family Medicine; Referring Provider Internal Medicine; Visit Provider Internal Medicine
DX: E21.3 Hyperparathyroidism, unspecified (principal); E55.9 Vitamin D deficiency, unspecified
CPT/HCPCS: 77080